=== PATIENT | female | born 1965 | race Caucasian/White ===

== ENCOUNTER 2017-10-03 20:02 | Emergency (ER) | payer OTHER ==
[2017-10-03 22:18] LABS: ABSOLUTE BASOPHIL COUNT 0 /CUMM (0.0-0.2); ABSOLUTE EOSINOPHIL COUNT 0 /CUMM (0.0-0.7); ABSOLUTE GRANULOCYTE CT 8.8 /CUMM (1.4-6.5); ABSOLUTE LYMPH COUNT 1.2 /CUMM (1.2-3.4); ABSOLUTE MONOCYTE COUNT 0.3 /CUMM (0.10-0.60); BASOPHIL % 0.4 % (0.0-2.0); EOSINOPHIL % 0 % (0-5); GRANULOCYTE % 84.9 % (42.2-75.2); MEAN CORPUSCULAR HGB 30.3 PG (27.0-31.0); MEAN CORPUSCULAR VOLUME 89.2 FL (81.0-99.0); MEAN PLATELET VOLUME 6.5 FL (7.4-10.4); PLATELET COUNT 391 /CUMM (130-400); RBC DISTRIBUTION WIDTH 12.3 % (11.5-14.5); RED BLOOD CELL CT 4.82 /CUMM (4.20-5.40); WHITE BLOOD CELL COUNT 10.4 /CUMM (4.8-10.8)
--- NOTE | 2017-10-03 23:13 | ED GI/GU/ABDOMINAL COMPLAINT ---
History of Present Illness General Chief Complaint: General Adult Stated Complaint: PT CAN'T STOP VOMITING Source: patient, family, old records Exam Limitations: no limitations Vital Signs & Intake/Output Vital Signs & Intake/Output Vital Signs Date Time Temp Pulse Resp B/P B/P Pulse O2 O2 Flow FiO2 Mean Ox Delivery Rate 10/03 2311 98.2 62 16 113/62 98 Room Air 10/04 2023 98.5 83 22 131/88 99 Allergies Coded Allergies: Penicillins (GI 10/03/17) Reconcile Medications Hyoscyamine Sulfate (Levsin-Sl) 0.125 MG TAB.SUBL 1-2 TAB SL Q4P PRN abdominal pain Metoclopramide HCl (Reglan) 10 MG TABLET 1 TAB PO TID PRN n/v 30 minutes before meals and bedtime Ondansetron (Zofran Odt) 4 MG TAB.RAPDIS 1 TAB SL TID PRN n/v Triage Note: PER PT VOMITING SINCE 1100, NOW EVERY FEW MINUTES NO DIARRHEA CO KNOT IN STOMACH, STARTED WITH ESTEBAN AND IT CONTINUES Triage Nurses Notes Reviewed? yes LMP (ages 10-50): post menopausal ? n Is pt currently ? No Onset: Morning Duration: hour(s):, continues in ED, intermittent Timing: recent history Quality/Severity: aching, moderate, vomiting Location: generalized abdomen Radiation: no radiation Activities at Onset: rest Prior Abdominal Problems: none Past Sexual History: Unobtainable at this time Modifying Factors: Worsens With: eating. Associated Symptoms: abdominal pain, loss of appetite, nausea/vomiting HPI: About 12 hours prior to admission patient complains of nausea vomiting achy abdominal discomfort headache. She denies fever chills diarrhea chest pain cough shortness breath dysuria rash bleeding bad food exposure ill contacts. Past History Travel History Traveled to [place] past 21 day No Medical History Any Pertinent Medical History? see below for history Neurological: MIGRAINES EENT: NONE Cardiovascular: NONE Respiratory: NONE Gastrointestinal: NONE Hepatic: NONE Renal: NONE Musculoskeletal: NONE Psychiatric: NONE Endocrine: GROWTH ON THYROID Surgical History Surgical History: non-contributory Psychosocial History What is your primary language Ukrainian Tobacco Use: Never used Family History Hx Contributory? No Review of Systems Review of Systems Constitutional: Reports: see HPI, malaise. EENTM: Reports: no symptoms. Respiratory: Reports: no symptoms. Cardiovascular: Reports: no symptoms. GI: Reports: see HPI, abdominal pain, nausea, vomiting. Genitourinary: Reports: no symptoms. Musculoskeletal: Reports: no symptoms. Skin: Reports: no symptoms. Neurological/Psychological: Reports: no symptoms. Hematologic/Endocrine: Reports: no symptoms. Immunologic/Allergic: Reports: no symptoms. All Other Systems: Reviewed and Negative Physical Exam Physical Exam General Appearance: well developed/nourished, alert, awake, anxious, moderate distress Head: atraumatic, normal appearance Eyes: Bilateral: normal appearance, PERRL, EOMI, normal inspection. Ears, Nose, Throat, Mouth: hearing grossly normal, Dry mucous membranes Neck: normal inspection, supple, full range of motion, normal alignment Respiratory: normal breath sounds, chest non-tender, no respiratory distress, quiet respiration, lungs clear Cardiovascular: regular rate/rhythm, normal peripheral pulses, norml femoral pulses equa Peripheral Pulses: 4+ carotid (R), 4+ carotid (L) Gastrointestinal: normal bowel sounds, soft, non-tender, no organomegaly Back: normal inspection, normal range of motion, no vertebral tenderness Extremities: normal range of motion, no ligament instability Neurologic/Psych: no motor/sensory deficits, awake, alert, oriented x 3, normal gait, normal mood/affect, 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 No Sepsis Present: No Sepsis Focused Exam Completed? No Progress Differential Diagnosis: biliary colic, bowel obstruction, gastritis, PUD/GERD Plan of Care: Orders Procedure Date/time Status LIPASE 10/03 2202 Complete COMPREHENSIVE METABOLIC PANEL 10/03 2202 Complete CBC WITHOUT DIFFERENTIAL 10/03 2202 Complete Laboratory Tests 10/03/17 2210: Anion Gap 12, Estimated GFR > 60, BUN/Creatinine Ratio 20.0, Glucose 101 H, Calcium 9.9, Total Bilirubin 0.6, AST 26, ALT 24, Alkaline Phosphatase 52, Total Protein 7.2, Albumin 4.2, Globulin 3.0, Albumin/Globulin Ratio 1.4, Lipase 79, CBC w Diff NO MAN DIFF REQ, RBC 4.82, MCV 89.2, MCH 30.3, MCHC 34.0, RDW 12.3, MPV 6.5 L, Gran % 84.9 H, Lymphocytes % 11.8 L, Monocytes % 2.9, Eosinophils % 0, Basophils % 0.4, Absolute Granulocytes 8.8 H, Absolute Lymphocytes 1.2, Absolute Monocytes 0.3, Absolute Eosinophils 0, Absolute Basophils 0 Initial ED EKG: none Departure Departure Time of Disposition: 0004 Disposition: HOME OR SELF CARE Condition: Stable Clinical Impression Primary Impression: Nausea and vomiting in adult Secondary Impressions: Dehydration Referrals: Kalpesh PACHECO,Harpal Paul (PCP/Family) Additional Instructions: Clear liquids in small amounts for 12-24 hours Departure Forms: Customer Survey General Discharge Information Prescriptions: Current Visit Scripts Ondansetron (Zofran Odt) 1 TAB SL TID PRN n/v #10 TAB Metoclopramide HCl (Reglan) 1 TAB PO TID PRN n/v #30 TAB 30 minutes before meals and bedtime Hyoscyamine Sulfate (Levsin-Sl) 1-2 TAB SL Q4P PRN abdominal pain #30 TAB
[2017-10-04] MEDS ORDERED: REGLAN10 M1 PO (00:06)
[2017-10-04] MEDS ORDERED: ZOFRAN ODT4 M1 SL (00:06)
[2017-10-04] MEDS ORDERED: LEVSIN-SL0.125 MG SL (00:06)
[2017-10-04 00:42] VITALS: BP 117/62
== END 2017-10-04 00:44 ==
LOC: ERH 20:02
PROVIDERS: Emergency Medicine
DX: E86.0 Dehydration (principal); R11.2 Nausea with vomiting, unspecified
CPT/HCPCS: 96361; 96374; 96375; J1885; J2765; J3101